=== PATIENT | female | born 1970 | race Caucasian/White ===

== ENCOUNTER 2021-03-07 13:50 | Outpatient (REF) | payer OTHER, SELFPAY ==
[2021-03-07 15:09] LABS: MANUAL DIFF FLAG NO
[2021-03-07 15:15] LABS: Basophils Absolute Auto 0.1 X10*3/uL (0.0-0.2); Basophils Percent Auto 0.8 % (0-2); Eosinophils Absolute Auto 0.1 X10*3/uL (0.0-0.4); Eosinophils Percent Auto 1.4 % (0-4); Hematocrit 46.5 % (37.0-47.0); Hemoglobin 15.1 g/dl (12.0-16.0); Imm Gran Abs Auto 0.01 X10*3/uL (0.00-0.03); Imm Gran Pct Auto 0.2 % (0.0-0.4); Lymphocytes Absolute Auto 2.4 X10*3/uL (1.2-4.9); Lymphocytes Percent Auto 36.2 % (20-40); Mean Corpuscular HGB Conc 32.5 g/dl (31.0-35.0); Mean Corpuscular Hemoglobin 28.8 pg (27.0-33.0); Mean Corpuscular Volume 88.6 fL (80.0-98.0); Mean Platelet Volume 10.3 fL (9.4-12.3); Monocytes Absolute Auto 0.4 X10*3/uL (0.1-1.2); Monocytes Percent Auto 5.9 % (2-11); Neutrophils Absolute Auto 3.7 x10*3/uL (2.0-8.3); Neutrophils Percent Auto 55.5 % (45-73); Platelet Count 233 X10*3/uL (160-400); Red Blood Count 5.25 X10*6/uL (4.20-5.50); White Blood Count 6.7 X10*3/uL (4.8-10.8)
[2021-03-07 15:39] LABS: Alanine Aminotransferase 13 U/L (0-31); Albumin Level 4.6 g/dL (3.5-5.0); Alkaline Phosphatase 62 U/L (39-117); Anion Gap 11 (12-20); Aspartate Amino Transferase 17 U/L (5-31); Bilirubin Total 0.3 mg/dL (0.0-1.0); Blood Urea Nitrogen 14 mg/dL (9-16); Calcium 10.3 mg/dL (8.4-10.2); Carbon Dioxide 29 mmol/L (22-29); Chloride 103 mmol/L (96-108); Estimated Glomerular Filt Rate > 60; Glucose Random 91 mg/dL (60-115); Potassium 4.4 mmol/L (3.3-5.1); Sodium 139 mmol/L (135-145); Total Protein 7.7 g/dL (6.5-8.0)
[2021-03-07 16:02] LABS: Ferritin 37 ng/mL (10-250)
[2021-03-08 18:31] LABS: Transglutaminase Ab IgG <1.0 U/mL; Transglutaminase IgA <1.0 U/mL
[2021-03-10 07:01] LABS: Zinc 61 mcg/dL (60-130)
[2021-03-11 19:15] LABS: Histamine Plasma <1.5 ng/mL (< OR = 1.8)
[2021-03-12 13:02] LABS: Gliadin Deamidated IgA Ab <1.0 U/mL; Gliadin Deamidated IgG Ab <1.0 U/mL
== END 2021-03-07 13:51 | disposition home or self-care (01) ==
LOC: HO.LAB 13:50
PROVIDERS: PCP Internal Medicine; Visit Provider Internal Medicine Gastroenterology
DX: G89.29 Other chronic pain (principal); R10.33 Periumbilical pain; K75.81 Nonalcoholic steatohepatitis (NASH); R19.7 Diarrhea, unspecified
CPT/HCPCS: 36415; 80053; 82728; 83088; 83520; 84630; 85025; 86258; 86364; 99202

== ENCOUNTER 2021-03-24 13:46 | Outpatient (REF) | payer OTHER, SELFPAY ==
[2021-03-24 14:38] LABS: Phosphorus 3.3 mg/dL (2.7-4.5)
[2021-03-31 21:41] LABS: Parathyroid Hormone Related Pr 17 pg/mL (11-20)
== END 2021-03-24 13:47 | disposition home or self-care (01) ==
LOC: HO.LAB 13:46
PROVIDERS: PCP Internal Medicine; Visit Provider Internal Medicine Gastroenterology
DX: E83.52 Hypercalcemia (principal)
CPT/HCPCS: 36415; 82330; 83519; 84100; 84443

== ENCOUNTER 2021-04-04 13:55 | Outpatient (REF) | payer OTHER, SELFPAY ==
--- NOTE | ~2021-04-04 | CT_ITS ---
EXAMINATION: CT ENTEROGRAPHY ABDOMEN AND PELVIS WITH CONTRAST CLINICAL INFORMATION: Periumbilical pain COMPARISON: None TECHNIQUE: Study performed with oral VoLumen (1350 mL) and 480 mL of water to distend the abdomen. The patient was injected with 85 mL Omnipaque 350 intravenous contrast which was administered without adverse effect. Coronal and sagittal reformatted images were obtained at the technologist's workstation. This CT examination was performed using dose optimization techniques as appropriate, variously including the following: *Automated exposure control *Adjustment of mA and/or kV according to patient size (this includes techniques or standardized protocols for targeted exams where dose is matched to indication/reason for exam; i.e. extremities or head) *Use of iterative reconstruction technique DLP: 391 mGy-cm FINDINGS: GASTROINTESTINAL FINDINGS: Stomach: Well-distended and normal in appearance. Small intestine: Satisfactorily distended and normal in appearance. Large intestine: The cecum appears located in the right upper quadrant. Stool in the colon questionable for mild constipation. Well-distended and otherwise normal in appearance. No perirectal changes demonstrated. The appendix is normal. Additional findings: No abnormal enhancement of the vasa recta or significant mesenteric or retroperitoneal lymphadenopathy is seen. No abdominal abscess or fistulous tract demonstrated. ABDOMINAL AND PELVIC CT FINDINGS: Liver, gallbladder, biliary tract: There are liver cysts. The largest measures 1.5 cm in the anterior segment of the right lobe. The gallbladder is unremarkable. There is no biliary duct dilatation. Pancreas: Normal Spleen: Normal Adrenal glands and kidneys: The adrenal glands are normal. There are bilateral renal cysts. Largest cyst measures 6.5 cm exophytic to the lower pole the right kidney. No imaging follow-up is indicated. Ureters and bladder: Normal Lymphovascular structures: Normal There is a small umbilical hernia containing fat. There are prominent left pelvic vessels questionable for pelvic congestion. Uterus and adnexa are otherwise unremarkable. Bones: There is mild curvature of the lumbar spine to the right. There is degenerative disc disease at L5-S1. Lung bases: Normal CT/CT enterography IMPRESSION: The cecum is located in the right upper quadrant. There is stool the colon suggestive of constipation. Otherwise unremarkable CT enterography exam. Liver and bilateral renal cysts including a large 6.5 cm cyst exophytic to the lower pole of the right kidney. Prominent left pelvic vessels questionable for pelvic congestion.
[2021-04-04] MEDS: iohexoL 350 MG/ML 100 ML INFUS..BTL IV (15:26)
[2021-04-05] MEDS: Sorbitol/Mannit/Xanth Imaging 500 ML LIQUID 1500 ML PO (09:34)
== END 2021-04-04 13:56 | disposition home or self-care (01) ==
LOC: HO.US 13:55
PROVIDERS: PCP Internal Medicine; Visit Provider Internal Medicine Gastroenterology
DX: R10.33 Periumbilical pain (principal)
CPT/HCPCS: 74177; Q9967

== ENCOUNTER → 2021-04-22 11:25 | Outpatient (BNVA) | payer OTHER, SELFPAY | PROVIDERS: PCP Internal Medicine; Visit Provider Internal Medicine Gastroenterology | DX: Z13.89 Encounter for screening for other disorder (principal) ==